=== PATIENT | male | born 1945 | race Caucasian/White ===

== ENCOUNTER 2016-06-04 19:09 | Emergency (ER) | payer MEDICARE, MEDICAID ==
[~2016-06-04] VITALS: Ht 175.3 cm; Wt 124.7 kg
[~2016-06-04 19:09] MED LIST: LIRA0.6P2 SQ
[2016-06-04 20:38] LABS: BASOPHILS % (AUTO) 0.5 % (0.0-2.0); EOSINOPHILS # (AUTO) 0.6 K/uL (0.0-0.7); EOSINOPHILS % (AUTO) 6.2 % (0.0-7.0); HEMATOCRIT 39.8 % (40.0-50.0); HEMOGLOBIN 13.1 g/dL (14.0-18.0); LYMPHOCYTES # (AUTO) 2.4 K/uL (0.8-4.8); LYMPHOCYTES % (AUTO) 25.5 % (20.5-51.5); MEAN CORPUSCULAR HEMOGLOBIN 28.2 uug (27.0-31.0); MEAN CORPUSCULAR HGB CONC 33 g/dL (32.0-37.0); MEAN CORPUSCULAR VOLUME 85.5 fL (82.0-92.0); MONOCYTES # (AUTO) 1.4 K/uL (0.1-1.30); MONOCYTES % (AUTO) 15.4 % (0.0-11.0); NEUTROPHILS % (AUTO) 52.4 % (38.5-71.5); PLATELET COUNT (AUTO) 142 K/uL (150-450); RED BLOOD CELL COUNT(AUTO) 4.65 MIL/uL (4.70-6.10); RED CELL DISTRIBUTION WIDTH 12.8 % (11.5-14.5); WHITE BLOOD COUNT (AUTO) 9.4 K/uL (4.0-11.2)
[2016-06-04 20:48] LABS: CALCIUM 9.5 mg/dL (8.5-10.1); POTASSIUM 6.1 mmol/L (3.5-5.1)
[2016-06-04 20:49] LABS: CREATININE 1.9 mg/dL (0.6-1.3)
[2016-06-04 20:56] LABS: BAND % (MANUAL) 2 % (0-10); LYMPHOCYTES % (MANUAL) 24 % (20-40); NEUTROPHILS % (MANUAL) 55 % (42-75)
[2016-06-04 20:57] LABS: EOSINOPHILS % (MANUAL) 7 % (0-8); MONOCYTES % (MANUAL) 12 % (2-10)
[2016-06-04 20:59] LABS: PLATELET ESTIMATE SLIGHT DECREASED
[2016-06-04 21:00] LABS: ALBUMIN 3.8 g/dL (3.4-5.0); BILIRUBIN,DIRECT 0.1 mg/dL (0.0-0.2); BILIRUBIN,TOTAL 0.4 mg/dL (0.2-1.0); TOTAL PROTEIN, SERUM 7.6 g/dL (6.4-8.2)
[2016-06-04] MEDS ORDERED: FUROSEMIDE 20 MG TABLET PO ONE (21:15)
[2016-06-04] MEDS ORDERED: FUROSEMIDE 20 MG TABLET ONE (21:33)
--- NOTE | 2016-06-04 21:33 | NUR ---
Patient discharged to home in stable conditon. Written and verbal after care instructions given. Patient verbalizes understanding of instructions.
[2016-06-04 21:34] VITALS: BP 138/72
== END 2016-06-04 21:33 | disposition home or self-care (01) ==
LOC: ER 19:22
DX: R60.0 Localized edema (principal); I10 Essential (primary) hypertension; E11.9 Type 2 diabetes mellitus without complications; E78.00 Pure hypercholesterolemia, unspecified; Z79.4 Long term (current) use of insulin
CPT/HCPCS: 36415; 71010; 80048; 80076; 83880; 84484; 85025; 85730; 93005; 99285; A4663; 70030-TC